=== PATIENT | female | born 1945 | race Asian ===

== ENCOUNTER → 2021-04-12 | Outpatient (CLI) | payer MEDICARE, BC ==
[~2021-04-12] MED LIST: FENTANYL PF 100 MCG/2ML ONE; GADOTERATE 5 MMOL/10ML SYR ONE; MIDAZOLAM 1 MG/ML, 5ML ONE
== END | disposition home or self-care (01) ==
LOC: RAD 07:57
PROVIDERS: ATTEND Pain Medicine Interventional Pain Medicine
DX: R22.1 Localized swelling, mass and lump, neck (principal); M48.061 Spinal stenosis, lumbar region without neurogenic claudication; M43.16 Spondylolisthesis, lumbar region; M47.816 Spondylosis without myelopathy or radiculopathy, lumbar region; I10 Essential (primary) hypertension; G47.30 Sleep apnea, unspecified; Z79.899 Other long term (current) drug therapy; Z87.891 Personal history of nicotine dependence; Z88.8 Allergy status to other drugs, medicaments and biological substances
CPT/HCPCS: 70543; 72158; 99156; 99157; A9575; J2250; J3010